=== PATIENT | male | born 1940 | race Caucasian/White ===

== ENCOUNTER 2019-07-28 03:30 | Outpatient (CLI) | payer SELFPAY | END 2019-07-28 03:31 | disposition critical access hospital (66) | LOC: EMS 03:30 | PROVIDERS: ATTEND Surgery | DX: R31.9 Hematuria, unspecified (principal); R52 Pain, unspecified | CPT/HCPCS: A0425; A0429 ==

== ENCOUNTER 2019-07-28 03:48 | Emergency (ER) | payer SELFPAY ==
[2019-07-28 04:18] LABS: BASOPHILS % (AUTO) 0.4 %; HGB - HEMOGLOBIN 9.6 g/dL (14.0-18.0); LYMPHOCYTES % (AUTO) 10.5 %; MEAN CORPUSCULAR HEMOGLOBIN 29.6 pg (27.0-31.0); MEAN CORPUSCULAR HGB CONC 32.1 g/dL (32.0-36.0); MEAN CORPUSCULAR VOLUME 92.3 fL (80.0-94.0); MEAN PLATELET VOLUME 9.4 fL (7.4-11.4); MONOCYTES # (AUTO) 0.5 10^3/uL (0.0-1.0); MONOCYTES % (AUTO) 5.3 %; NEUTROPHILS % (AUTO) 83.4 %; PLT - PLATELET COUNT 290 10^3/uL (130-450); RED BLOOD COUNT 3.24 10^6/uL (4.70-6.10); RED CELL DISTRIBUTION WIDTH 13.7 % (12.0-15.0); WHITE BLOOD COUNT 9.6 x10^3/uL (4.8-10.8)
[2019-07-28 04:34] LABS: ALBUMIN 4.4 g/dL (3.2-5.5); ALBUMIN/GLOBULIN RATIO 1.5 (1.0-2.2); BILIRUBIN,TOTAL 1.3 mg/dL (0.2-1.0); CALCIUM 9.1 mg/dL (8.5-10.3); CREATININE 1.2 mg/dL (0.6-1.2); TOTAL PROTEIN 7.3 g/dL (6.7-8.2)
[2019-07-28] MEDS ORDERED: IOVERSOL 320 100 ML VIAL IVP ONE ×2 (04:43→05:31)
--- NOTE | 2019-07-28 05:54 | XRAY Report ---
Reason: fatigue, dyspnea Procedure Date: 07/28/2019 Accession Number: [id number] / [id number] Procedure: XR - Chest 2 View X-Ray CPT Code: 24246 Final Report FULL RESULT: EXAM: CHEST RADIOGRAPHY EXAM DATE: 07/28/2019 05:33 AM. CLINICAL HISTORY: Fatigue, dyspnea. COMPARISON: None. TECHNIQUE: 2 views. FINDINGS: Lungs/Pleura: Large lung volumes. No alveolar consolidation or pleural effusion seen. No pneumothorax. Mediastinum: Heart and mediastinal contours are unremarkable. Other: Degenerative changes in the spine. Mild scoliosis. Compression deformity in the midthoracic spine, probably chronic. IMPRESSION: 1. Large lung volumes. No acute abnormality seen in the chest. RADIA
--- NOTE | 2019-07-28 06:02 | CT Report ---
Reason: hematuria, lower abd. pain Procedure Date: 07/28/2019 Accession Number: [id number] / [id number] Procedure: CT - ANGIO ABDOMEN/PELVIS W CPT Code: Final Report FULL RESULT: EXAM: CT ANGIOGRAM ABDOMEN AND PELVIS WITH CONTRAST EXAM DATE: 07/28/2019 05:36 AM. CLINICAL HISTORY: Hematuria. Lower abdominal pain. COMPARISONS: None. TECHNIQUE: Routine helical CT angiogram imaging was performed through the abdomen and pelvis in the arterial phase. IV contrast: OPTIRAY 320. Enteric contrast: No. Reconstructions: Coronal, sagittal, and 3D MIP reconstructions. In accordance with CT protocol optimization, one or more of the following dose reduction techniques were utilized for this exam: automated exposure control, adjustment of mA and/or KV based on patient size, or use of iterative reconstructive technique. FINDINGS: Vasculature: No aneurysm seen. Moderate atherosclerosis. No significant stenosis seen in the celiac axis, superior mesenteric artery, bilateral renal arteries, or bilateral iliac arteries. Inferior mesenteric artery is patent. Lung Bases: Emphysema is suspected. Abdominal Solid Organs: Liver, spleen, pancreas, adrenals, and kidneys show no focal abnormalities on these arterial phase images. Gallbladder is unremarkable. Peritoneal Cavity: No bowel obstruction seen. Small amount of free fluid. No free air. No diverticulitis. No lymphadenopathy. Appendix is partially seen and visualized portions appear normal. Moderate gas and stool in the colon. Pelvic Organs: Suspect blood clot in the urinary bladder. Multiple bladder masses measuring up to 4.7 x 4.2 cm suspicious for malignancy. Enlarged prostate measuring approximately 5.1 x 4.7 cm. Bones: Vertebral body fracture at L4 which is probably chronic. No aggressive lytic or blastic osseous lesions identified. Other: None. IMPRESSION: 1. Moderate atherosclerosis. No acute vascular abnormality seen. 2.There appears to be some blood clot in the urinary bladder. Multiple bladder masses are seen measuring up to 4.7 x 4.2 cm, suspicious for malignancy. 3.Moderate gas and stool in the colon. 4.Small amount of free fluid which is nonspecific. RADIA
--- NOTE | 2019-07-28 06:07 | ED Physician Documentation ---
PD HPI MALE - Stated complaint Stated Complaint: MALE - Chief complaint Chief Complaint: Wound - History obtained from History obtained from: Patient - History of Present Illness Timing - onset: How many days ago (2-3) Timing - duration: Days Timing - details: Abrupt onset Pain level now: 4 Associated symptoms: Dysuria, Hematuria, Abdominal pain (RLQ and right pelvic pain, mostly with urination) Similar symptoms before: Has not had sx before Recently seen: Not recently seen (patient has not seen a doctor since 2005) - Additional information Additional information: c/o 2-3 days of gross hematuria with clots; he has had some episodes where he had to strain to urinate, with resulting expulsion of clots. He says he recalls having milder hematuria in December but milder and self-limited, did not seek medical treatment at that time. Patient says he has not seen a doctor since 2005. Review of Systems Constitutional: reports: Fatigue. denies: Fever, Chills, Sweats Cardiac: reports: Reviewed and negative Respiratory: reports: Reviewed and negative GI: reports: Abdominal Pain. denies: Abdominal Swelling, Nausea, Vomiting, Constipation, Diarrhea : reports: Hematuria. denies: Dysuria, Frequency Neurologic: reports: Generalized weakness, Focal weakness (right facial weakness (chronic)) PD PAST MEDICAL HISTORY - Past Medical History Past Medical History: Yes Other Past Medical History: Blood poisoning when young - Past Surgical History Past Surgical History: Yes General: Appendectomy - Present Medications Home Medications: Ambulatory Orders Medication Instructions Recorded Confirmed No Known Home Medications 07/28/19 07/28/19 - Allergies Allergies/Adverse Reactions: Allergies Allergy/AdvReac Type Severity Reaction Status Date / Time pollen extracts Allergy Respiratory Verified 07/28/19 12:59 - Social History Does the pt smoke?: No Smoking Status: Never smoker Does the pt drink ETOH?: Yes Does the pt have substance abuse?: No - Immunizations Immunizations: TDAP >10years/unknown - POLST Patient has POLST: No PD ED PE NORMAL - Vitals Vital signs reviewed: Yes - General General: Alert and oriented X 3, No acute distress, Well developed/nourished - HEENT HEENT: PERRL, EOMI, Moist mucous membranes - Neck Neck: Supple, no meningeal sign - Cardiac Cardiac: RRR, No murmur - Respiratory Respiratory: No respiratory distress, Clear bilaterally - Abdomen Abdomen: Soft, Non tender, Non distended - Derm Derm: Normal color, Warm and dry - Extremities Extremities: No edema, Other (medial aspect of left ankle has ulceration/skin breakdown without evidence of infection) Results - Vitals Vitals: Vital Signs - 24 hr 07/28/19 07/28/19 07/28/19 03:50 04:26 04:39 Temperature 36.4 C L Heart Rate 93 93 90 Respiratory 18 19 11 L Rate Blood Pressure 138/71 H 130/79 121/68 O2 Saturation 100 100 100 07/28/19 07/28/19 07/28/19 06:13 06:47 08:00 Temperature 36.5 C Heart Rate 98 82 87 Respiratory 13 20 18 Rate Blood Pressure 120/74 121/71 116/65 O2 Saturation 100 97 100 07/28/19 10:00 Temperature Heart Rate 81 Respiratory 16 Rate Blood Pressure 113/70 O2 Saturation 99 Oxygen O2 Source Room air - Labs Labs: Laboratory Tests 07/28/19 07/28/19 07/28/19 04:00 04:00 06:00 WBC 9.6 RBC 3.24 L Hgb 9.6 L Hct 29.9 L MCV 92.3 MCH 29.6 MCHC 32.1 RDW 13.7 Plt Count 290 MPV 9.4 Neut # (Auto) 8.0 H Lymph # (Auto) 1.0 L Wise # (Auto) 0.5 Eos # (Auto) 0.0 Baso # (Auto) 0.0 Absolute Nucleated RBC 0.00 Nucleated RBC % 0.0 Sodium 134 L Potassium 3.5 Chloride 96 L Carbon Dioxide 26 Anion Gap 12.0 BUN 31 H Creatinine 1.2 Estimated GFR (MDRD) 59 L Glucose 99 Calcium 9.1 Total Bilirubin 1.3 H AST 31 ALT 20 Alkaline Phosphatase 61 Total Protein 7.3 Albumin 4.4 Globulin 2.9 Albumin/Globulin Ratio 1.5 Lipase 57 H Urine Color RED/BLOODY Urine Clarity CLOUDY Urine pH Ur Specific [place] Urine Protein Urine Glucose (UA) Urine Ketones Urine Occult Blood LARGE Urine Nitrite Urine Bilirubin NEGATIVE Urine Urobilinogen Ur Leukocyte Esterase Urine RBC TNTC H Urine WBC 0-3 Ur Squamous Epith Cells NONE SEEN Urine Bacteria Rare Ur Microscopic Review INDICATED Urine Culture Comments NOT INDICATED 07/28/19 08:37 WBC RBC Hgb 9.3 L Hct 28.6 L MCV MCH MCHC RDW Plt Count MPV Neut # (Auto) Lymph # (Auto) Wise # (Auto) Eos # (Auto) Baso # (Auto) Absolute Nucleated RBC Nucleated RBC % Sodium Potassium Chloride Carbon Dioxide Anion Gap BUN Creatinine Estimated GFR (MDRD) Glucose Calcium Total Bilirubin AST ALT Alkaline Phosphatase Total Protein Albumin Globulin Albumin/Globulin Ratio Lipase Urine Color Urine Clarity Urine pH Ur Specific [place] Urine Protein Urine Glucose (UA) Urine Ketones Urine Occult Blood Urine Nitrite Urine Bilirubin Urine Urobilinogen Ur Leukocyte Esterase Urine RBC Urine WBC Ur Squamous Epith Cells Urine Bacteria Ur Microscopic Review Urine Culture Comments - Rads (name of study) CT A/P angio Radiology: Prelim report reviewed, See rad report PD MEDICAL DECISION MAKING - ED course Complexity details: reviewed results, re-evaluated patient, considered differential, d/w patient ED course: patient urinated early in ED stay and expelled a clot; subsequent placement of ball catheter resulted in over 1000 cc output, gross hematuria that initially was opaque but improved to translucent hematuria. CT A/P shows multiple bladder masses as well as residual clots in bladder. D/W Dr. Lakhani (on-call urology at [facility]), recommends change catheter to 22 Fr, irrigation until clots are cleared, and follow-up in urology clinic; he recommends patient call later today and they will likely be able to evaluate him in the clinic tomorrow. This conversation with Dr. Lakhani occurred after my shift had ended, and thus I signed the care of patient out to oncoming ED physician Dr. Lanier Departure - Departure Disposition: 01 Home, Self Care Clinical Impression: Hematuria Condition: Good Instructions: ED Catheter Care Ball, ED Hematuria Comments: Call the urology group at [facility] to arrange for follow-up appointment. [address], [place] [id number] I discussed your case with Dr. Oren Lakhani, but any of the urologists in the group can evaluate you. As we discussed, the CT scan performed today appears to show masses on your bladder, and these can be evaluated by the urologist. Discharge Date/Time: 07/28/19 10:00
[2019-07-28 06:17] LABS: BILIRUBIN,URINE NEGATIVE (NEGATIVE)
[2019-07-28 06:19] LABS: CLARITY,URINE CLOUDY (CLEAR)
[2019-07-28 06:20] LABS: OCCULT BLOOD,URINE LARGE (NEGATIVE)
[2019-07-28 06:22] LABS: BACTERIA,URINE Rare /HPF (None Seen); RBC,URINE TNTC /HPF (0-5); SQUAMOUS EPITHELIAL CELL,UR NONE SEEN (<= Few)
[2019-07-28] MEDS ORDERED: BACITRACIN ZINC OINT 1 PACKET TOP STA (06:34)
[2019-07-28] MEDS ORDERED: LIDOCAINE JELLY 2% 6 ML JEL.PF.APP ONE (07:42)
[2019-07-28 08:44] LABS: HGB - HEMOGLOBIN 9.3 g/dL (14.0-18.0)
[2019-07-28] MEDS ORDERED: LIDOCAINE 2% URO-JET 5 ML SYRINGE UR STA (08:53)
[2019-07-28 10:02] VITALS: BP 113/70
== END 2019-07-28 10:00 | disposition home or self-care (01) ==
LOC: EDUNIT# → EDBD → ED 03:48
DX: R31.0 Gross hematuria (principal); L97.321 Non-pressure chronic ulcer of left ankle limited to breakdown of skin; N32.9 Bladder disorder, unspecified
CPT/HCPCS: 36415; 51702; 71046; 74174; 80053; 81001; 83690; 85014; 85018; 85025; 99284; 99285; A9270; Q9967; 81003; 87086

== ENCOUNTER 2019-07-28 12:20 | Outpatient (CLI) | payer SELFPAY | END 2019-07-28 12:21 | disposition critical access hospital (66) | LOC: EMS 12:20 | PROVIDERS: ATTEND Surgery | DX: R58 Hemorrhage, not elsewhere classified (principal) | CPT/HCPCS: A0425; A0429 ==

== ENCOUNTER 2019-07-28 12:41 | Emergency (ER) | payer SELFPAY ==
--- NOTE | 2019-07-28 13:32 | ED Physician Documentation ---
PD HPI MALE - Stated complaint Stated Complaint: CATH ISSUES - Chief complaint Chief Complaint: Abd Pain - History obtained from History obtained from: Patient (78-year-old gentleman with history of stroke, no primary care. On and off for the last 6 months he has had clots and blood in his urine. He had not sought medical attention for this. He was finally seen early this morning because the clots had caused urinary retention. A Ball was placed and a CT was done, the clots were cleared and Dr. Sales discussed the case with Dr. Lakhani, on-call urology at [facility] who plans to see him in follow-up. He was discharged home, but the catheter became occluded by clot again.) Review of Systems Ten Systems: 10 systems reviewed and negative GI: denies: Abdominal Pain, Abdominal Swelling, Nausea, Vomiting, Constipation, Diarrhea PD PAST MEDICAL HISTORY - Past Surgical History Past Surgical History: Yes General: Appendectomy - Present Medications Home Medications: Ambulatory Orders Medication Instructions Recorded Confirmed No Known Home Medications 07/28/19 07/28/19 - Allergies Allergies/Adverse Reactions: Allergies Allergy/AdvReac Type Severity Reaction Status Date / Time pollen extracts Allergy Respiratory Verified 07/28/19 12:59 - Social History Does the pt smoke?: No Smoking Status: Never smoker Does the pt drink ETOH?: Yes Does the pt have substance abuse?: No - Immunizations Immunizations are current?: Yes Immunizations: TDAP >10years/unknown - POLST Patient has POLST: No PD ED PE NORMAL - Vitals Vital signs reviewed: Yes - General General: Alert and oriented X 3, Other (Thin elderly male with slightly slurred speech laying in bed in no distress) - HEENT HEENT: PERRL, EOMI - Neck Neck: Supple, no meningeal sign, No bony TTP - Cardiac Cardiac: RRR, No murmur - Respiratory Respiratory: No respiratory distress, Clear bilaterally - Abdomen Abdomen: Normal bowel sounds, Soft, Non tender - Male Male : Other (There is a Ball catheter in place, it is draining urine with small clots in it. The nurse had already irrigated it when I examined him.) - Back Back: No CVA TTP, No spinal TTP - Derm Derm: Normal color, Warm and dry - Extremities Extremities: No edema, No calf tenderness / cord - Neuro Neuro: Alert and oriented X 3, Normal speech Results - Vitals Vitals: Vital Signs - 24 hr 07/28/19 07/28/19 07/28/19 12:43 14:30 15:30 Temperature 36.6 C Heart Rate 82 72 75 Respiratory 16 16 18 Rate Blood Pressure 112/78 113/75 133/67 H O2 Saturation 95 95 96 Oxygen O2 Source Room air - Labs Labs: Laboratory Tests 07/28/19 15:00 Hgb 9.1 L Hct 28.6 L PD MEDICAL DECISION MAKING - ED course ED course: The catheter was irrigated but it was still very very thick and red, this is a second visit today for the same and probably needs to go for something more definitive, call was placed to schedule urology at [address] Lakhani there shortly thereafter who recommended changing him over to a 24 [place] three-way catheter irrigated and then with CBI. Defers to the hospitalist for admission but will gladly consult when he gets there. The hospitalist at [facility] graciously agreed to admit and cobras were completed. He is stable for transport for urologic care. Departure - Departure Disposition: 02 Transfer Acute Care Hosp Clinical Impression: Urinary retention, Mass of bladder Hematuria Qualifiers: Hematuria type: gross Qualified Code(s): R31.0 - Gross hematuria Condition: Stable Discharge Date/Time: 07/28/19 16:15
[2019-07-28] MEDS ORDERED: LIDOCAINE 2% URO-JET 5 ML SYRINGE UR STA (14:22)
[2019-07-28 15:11] LABS: HGB - HEMOGLOBIN 9.1 g/dL (14.0-18.0)
[2019-07-28 16:29] VITALS: BP 133/67
== END 2019-07-28 16:15 | disposition short-term general hospital (02) ==
LOC: EDUNIT# → EDBD → ED 12:41
DX: T83.091A Other mechanical complication of indwelling urethral catheter, initial encounter (principal); R31.0 Gross hematuria; R33.9 Retention of urine, unspecified; N32.89 Other specified disorders of bladder
CPT/HCPCS: 36415; 85014; 85018

== ENCOUNTER 2019-07-28 16:22 | Outpatient (CLI) | payer SELFPAY | END 2019-07-28 16:23 | disposition short-term general hospital (02) | LOC: EMS 16:22 | PROVIDERS: ATTEND Surgery | DX: R31.9 Hematuria, unspecified (principal); R10.30 Lower abdominal pain, unspecified | CPT/HCPCS: A0425; A0426 ==

== ENCOUNTER → 2020-08-26 | Outpatient (CLI) | payer SELFPAY | END | disposition short-term general hospital (02) | LOC: EMS 17:21 | DX: R31.9 Hematuria, unspecified (principal); R35.0 Frequency of micturition | CPT/HCPCS: A0425; A0429 ==